=== PATIENT | male | born 1960 | race Caucasian/White ===

== ENCOUNTER 2020-07-23 16:16 | Day surgery (SDC) | payer OTHER ==
[2020-07-23] MEDS ORDERED: BUPIVACAINE 0.5% VIAL IJ ONE (16:17)
[2020-07-23] MEDS ORDERED: Xylocaine 1% Vial 30 ML PF IJ ONE (16:17)
[2020-07-23] MEDS ORDERED: Depo-Medrol 40 MG/ML IM ONE (16:17)
--- NOTE | 2020-07-24 08:37 | XRAY ---
Indication: Right shoulder injection. Intraoperative fluoroscopy provided for 19 seconds. 4 digital spot image submitted for interpretation demonstrates needle tip projecting over the right glenohumeral joint superiorly. Second needle tip projects subacromial. Small amount of contrast injected for both needle tip placement. Correlate with intraoperative findings/report.
--- NOTE | 2020-07-24 08:40 | XRAY ---
19 seconds fluoroscopy time in surgery for intra-articular injection of the right shoulder.
== END 2020-07-23 17:52 | disposition home or self-care (01) ==
LOC: SDC-PAIN 16:16
PROVIDERS: ATTEND Psychiatry & Neurology Pain Medicine
DX: M19.011 Primary osteoarthritis, right shoulder (principal); I25.10 Atherosclerotic heart disease of native coronary artery without angina pectoris; E78.00 Pure hypercholesterolemia, unspecified; I10 Essential (primary) hypertension; M19.90 Unspecified osteoarthritis, unspecified site; M06.9 Rheumatoid arthritis, unspecified; Z79.899 Other long term (current) drug therapy
CPT/HCPCS: 73030; 77002; J1030; J2001

== ENCOUNTER 2021-01-14 15:50 | Day surgery (SDC) | payer OTHER ==
[2021-01-14] MEDS ORDERED: Xylocaine 1% Vial 30 ML PF IJ ONE (15:51)
[2021-01-14] MEDS ORDERED: BUPIVACAINE 0.5% VIAL IJ ONE (15:51)
[2021-01-14] MEDS ORDERED: Depo-Medrol 40 MG/ML IM ONE (15:51)
--- NOTE | 2021-01-15 07:22 | XRAY ---
Indication: Right shoulder and subacromial injection. Intraoperative fluoroscopy provided for 27 seconds. 2 digital spot image submitted for interpretation demonstrates needle tip projecting right glenohumeral joint superiorly. Second needle tip subacromial. Small amount of contrast injected for both needle tip placement. Correlate with intraoperative findings/report.
--- NOTE | 2021-01-15 10:25 | XRAY ---
27 seconds fluoroscopy time in surgery for intra-articular and subachromial injections of the right shoulder.
== END 2021-01-14 19:00 | disposition home or self-care (01) ==
LOC: SDC-PAIN 15:50
PROVIDERS: ATTEND Psychiatry & Neurology Pain Medicine
DX: M19.011 Primary osteoarthritis, right shoulder (principal); M75.51 Bursitis of right shoulder; K21.9 Gastro-esophageal reflux disease without esophagitis; I25.10 Atherosclerotic heart disease of native coronary artery without angina pectoris; E78.5 Hyperlipidemia, unspecified; I10 Essential (primary) hypertension; M06.9 Rheumatoid arthritis, unspecified; Z79.899 Other long term (current) drug therapy
CPT/HCPCS: 20610; 73030; 77002; J1030; J2001; Q9966

== ENCOUNTER 2022-06-30 15:49 | Day surgery (SDC) | payer OTHER ==
[2022-06-30] MEDS ORDERED: BUPIVACAINE 0.5% VIAL IJ ONE (15:50)
[2022-06-30] MEDS ORDERED: Depo-Medrol 40 MG/ML IM ONE (15:50)
[2022-06-30] MEDS ORDERED: LIDOCAINE HCL 1% 50 MG/5 ML VL PF IJ ONE (15:50)
--- NOTE | 2022-06-30 19:42 | XRAY ---
Indication: Right shoulder and subacromial bursa injection. Intraoperative fluoroscopy provided for 30 seconds. 2 digital spot images submitted for interpretation demonstrates needle tip projecting over the right glenohumeral joint superiorly. Second needle tip subacromial. Small amount of contrast injected for both needle tip placement. Correlate with intraoperative findings/report.
--- NOTE | 2022-07-01 08:42 | XRAY ---
30 seconds of fluoroscopy was used in surgery for a right intra-articular shoulder and subacromial bursa injection.
== END 2022-06-30 18:40 | disposition home or self-care (01) ==
LOC: SDC-PAIN 15:49
PROVIDERS: ATTEND Psychiatry & Neurology Pain Medicine
DX: M19.011 Primary osteoarthritis, right shoulder (principal); M75.51 Bursitis of right shoulder; Z79.899 Other long term (current) drug therapy
CPT/HCPCS: 20610; 73030; 77002; J1030; J2001; Q9966

== ENCOUNTER 2023-08-03 15:12 | Day surgery (SDC) | payer OTHER ==
[2023-08-03] MEDS ORDERED: XYLOCAINE-MPF 1% 5ML SDV IJ ONE (15:13)
[2023-08-03] MEDS ORDERED: Depo-Medrol 40 MG/ML IM ONE (15:13)
[2023-08-03] MEDS ORDERED: BUPIVACAINE 0.5% VIAL IJ ONE (15:13)
--- NOTE | 2023-08-03 19:30 | XRAY ---
Indication: Right shoulder and subacromial bursa injection. Intraoperative fluoroscopy provided for 25 seconds. 3 digital spot images submitted for interpretation demonstrates needle tip projecting over the right glenohumeral joint superiorly. Second needle tip subacromial. Small amount of contrast injected for both needle tip placement. Correlate with intraoperative findings/report.
--- NOTE | 2023-08-04 10:34 | XRAY ---
25 seconds of fluoroscopy was used in surgery for a right intra-articular shoulder and subacromial bursa injection.
== END 2023-08-03 18:05 | disposition home or self-care (01) ==
LOC: SDC-PAIN 15:12
PROVIDERS: ATTEND Psychiatry & Neurology Pain Medicine
DX: M19.011 Primary osteoarthritis, right shoulder (principal)
CPT/HCPCS: 20610; 73030; 77002; J1010; Q9966

== ENCOUNTER 2024-07-25 15:44 | Day surgery (SDC) | payer MEDICARE, OTHER ==
[2024-07-25] MEDS ORDERED: LIDOCAINE HCL 1% 50 MG/5 ML VL IJ ONE (15:45)
[2024-07-25] MEDS ORDERED: BUPIVACAINE 0.5% VIAL IJ ONE (15:45)
--- NOTE | 2024-07-25 20:04 | XRAY ---
Indication: Right shoulder and subacromial bursa injection. Intraoperative fluoroscopy provided for 44 seconds. 5 digital spot image submitted for interpretation demonstrates needle tip projecting over right glenohumeral joint superiorly. Second needle tip subacromial. Small amount of contrast injected for both needle tip placement. Correlate with intraoperative findings/report.
--- NOTE | 2024-07-26 08:52 | XRAY ---
44 seconds of fluoroscopy was used in surgery for a right intra-articular shoulder and subacromial bursa injection.
== END 2024-07-25 18:21 | disposition home or self-care (01) ==
LOC: SDC-PAIN 15:44
PROVIDERS: ATTEND Psychiatry & Neurology Pain Medicine
DX: M19.011 Primary osteoarthritis, right shoulder (principal); M75.51 Bursitis of right shoulder
CPT/HCPCS: 20610; 73030; 77002; Q9966